=== PATIENT | female | born 1985 | race Native Hawaiian/Other Pacific Islander ===

== ENCOUNTER 2016-09-07 12:01 | Emergency (ER) | payer OTHER ==
[2016-09-07 12:37] VITALS: TEMP 98.1; O2SAT 100
--- NOTE | 2016-09-07 13:14 | C.PDOC ---
History Of Present Illness 31 y/o female G1 presents to ED with complaints of spotting for 2 days and vaginal bleeding beginning today. Patient states bleeding is "less than menstrual period" and reports dysuria since last night. Patient denies cramping , fever, N/V/D or any other complaints at this time. Time Seen by Provider: 09/07/16 13:14 Chief Complaint (Nursing): Female Genitourinary History Per: Patient History/Exam Limitations: no limitations Onset/Duration Of Symptoms: Days Current Symptoms Are (Timing): Still Present Associated Symptoms: Urinary Symptoms. denies: Fever, Chills Past Medical History Reviewed: Historical Data, Nursing Documentation, Vital Signs Vital Signs: Last Vital Signs Temp 98.1 F 09/07/16 14:44 Pulse 85 09/07/16 14:44 Resp 18 09/07/16 14:44 BP 110/73 09/07/16 14:44 Pulse Ox 100 09/07/16 14:44 - Medical History PMH: Hypothyroidism Family History: States: No Known Family Hx - Social History Hx Alcohol Use: No Hx Substance Use: No - Immunization History Hx Tetanus Toxoid Vaccination: No Hx Influenza Vaccination: No Hx Pneumococcal Vaccination: No Review Of Systems Except As Marked, All Systems Reviewed And Found Negative. Constitutional: Negative for: Fever, Chills Cardiovascular: Negative for: Chest Pain Respiratory: Negative for: Shortness of Breath Gastrointestinal: Negative for: Nausea, Vomiting, Diarrhea Genitourinary: Positive for: Vaginal Bleeding Neurological: Negative for: Weakness, Headache Physical Exam - Physical Exam Appears: Non-toxic, No Acute Distress Skin: Normal Color, Warm Head: Atraumatic, Normacephalic Oral Mucosa: Moist Cardiovascular: Rhythm Regular Respiratory: No Rales, No Rhonchi, No Wheezing Gastrointestinal/Abdominal: Soft, No Tenderness, No Guarding, No Rebound Extremity: Normal ROM Neurological/Psych: Oriented x3, Normal Speech, Normal Cognition ED Course And Treatment - Laboratory Results Result Diagrams: 09/07/16 13:44 09/07/16 13:44 O2 Sat by Pulse Oximetry: 100 (RA) Pulse Ox Interpretation: Normal Progress - Re-Evaluation Re-evaluation Note: 09/07/16 14:45 EXAM [facility] PRIOR. D/W DR [address] [place] IN ER - Data Reviewed Data Reviewed: Lab, Diagnostic imaging, Old records - Continuity of Care Discussed patient case with:: Patient Discussed pt. case with reporting consultant/specialty: Obstetrics/Gynecology Disposition Counseled Patient/Family Regarding: Studies Performed, Diagnosis, Need For Followup - Disposition Referrals: [facility] [Outside] [facility] [Outside] Disposition: HOME/ ROUTINE Disposition Time: 14:46 Condition: GOOD Instructions: Threatened Miscarriage (ED) - Clinical Impression Clinical Impression: Threatened - PA / FLOOR POLISHER / Resident Statement MD/DO has reviewed & agrees with the documentation as recorded. MD/DO has examined the patient and agrees with the treatment plan. - Scribe Statement The provider has reviewed the documentation as recorded by the Scribe Jenn Davis All medical record entries made by the Lara were at my direction and personally dictated by me. I have reviewed the chart and agree that the record accurately reflects my personal performance of the history, physical exam, medical decision making, and the department course for this patient. I have also personally directed, reviewed, and agree with the discharge instructions and disposition.
[2016-09-07 13:21] LABS: RBC URINE 1 /hpf (0-3); URINE BACTERIA OCC (<OCC); URINE BILIRUBIN NEGATIVE (NEGATIVE); URINE BLOOD NEGATIVE (NEGATIVE); URINE COLOR Colorless (YELLOW); URINE GLUCOSE (UA) NORMAL (Normal); URINE KETONE NEGATIVE (NEGATIVE); URINE LEUKOCYTE ESTERASE NEG Leu/uL (Negative); URINE PROTEIN NEGATIVE (NEGATIVE); URINE UROBILINOGEN NORMAL mg/dL (0.2-1.0); WBC URINE < 1 /hpf (0-5)
[2016-09-07 13:50] LABS: BASO # 0.1 K/uL (0.0-0.2); BASO % 0.9 % (0.0-2.0); EOS # 0.2 K/uL (0.0-0.7); EOS % 1.3 % (0.0-4.0); HEMATOCRIT 38.8 % (34.0-47.0); LYMPH % 16.4 % (20.0-40.0); MEAN CELL VOLUME 88.9 fL (81.0-99.0); MEAN CORPUSCULAR HGB CONC 32.6 g/dL (33.0-37.0); MEAN PLATELET VOLUME 9.5 fL (7.2-11.7); MONO # 0.5 K/uL (0.0-0.8); MONO % 4.1 % (0.0-10.0); NRBC % 0.1 % (0.0-2.0); RED CELL DISTRIBUTION WIDTH 13.4 % (11.5-14.5)
[2016-09-07 14:00] LABS: CHLORIDE 100 mmol/L (98-107); POTASSIUM 3.8 mmol/L (3.6-5.2); SODIUM 136 mmol/L (132-148)
[2016-09-07 14:02] LABS: ALB/GLOB RATIO 1.8 (1.0-2.1); ALKALINE PHOSPHATASE 74 U/L (38-126); AST/SGOT 30 U/L (14-36); BILIRUBIN,TOTAL 0.3 mg/dL (0.2-1.3); CARBON DIOXIDE 21 mmol/L (22-30); GFR AFRICAN-AMERICAN > 60; TOTAL PROTEIN 7.9 g/dL (6.3-8.3)
[2016-09-07 14:03] LABS: ALT/SGPT 43 U/L (9-52); BLOOD UREA NITROGEN 7 mg/dL (7-17); CALCIUM 9.3 mg/dl (8.6-10.4); GLUCOSE,RANDOM 116 mg/dL (65-105)
--- NOTE | 2016-09-07 14:27 | US ---
Indication: Bleeding Comparison: None available Technique: Transabdominal pelvic ultrasound. Findings: The uterus measures approximately 9.7 x 6.3 x 6.8 cm. Anteverted. Cervix length measures approximately 3.6 cm in length. There is a single intrauterine fetus present. 3 mm yolk sac. The gestational sac measures 2.2 cm and is compatible with a gestational age of 6 weeks 6 days. The crown-rump length measures 1.1 cm and is compatible with a gestational age of 7 weeks 2 days. There is heart motion which measured 146.3 BPM. The right ovary measures 4.1 x 2.5 x 2.9 cm. The left ovary measures 2.8 x 1.6 x 3.1 cm. Blood flow was demonstrated to both ovaries. Impression: Live single intrauterine with estimated gestational age 6 weeks 6 days by gestational sac calculation and 7 weeks 2 days by crown-rump length calculation. heart rate 146.3 bpm. Advise an anomaly screen at 16-18 weeks gestational age
[2016-09-07 14:45] VITALS: BP 110/73; PULSE 85; RESP 18
== END 2016-09-07 15:05 | disposition home or self-care (01) ==
LOC: C.ER 12:01
DX: O20.0 Threatened abortion (principal); Z3A.01 Less than 8 weeks gestation of pregnancy